=== PATIENT | male | born 1950 | race Caucasian/White ===

== ENCOUNTER → 2016-10-07 | Outpatient (CLI) | payer BC ==
--- NOTE | 2016-10-07 11:42 | PCVCIMAG ---
APPROVED REPORT Exam: Stress Echocardiogram Indication: CAD, CABG,HTN Parox A Flutter Stress Nurse: Puja Spivey RN Status: routine HR: 85 bpm Rhythm: NSR Procedure The patient underwent an Exercise Stress Test using the Abraham Protocol. Blood pressure, heart rate, and EKG were monitored. An Echocardiogram was performed by endoscope technician in four stages in quad fashion. At peak stress, four selected images were obtained and placed side by side with resting images for comparison. Stress Test Details Stress Test: Exercise stress testing was performed using a Abraham protocol. HR Resting HR: 85 bpmMax Heart Rate (APMHR): 156 bpm Max HR Achieved: 164 bpmTarget HR (85% APMHR): 132 bpm % of APMHR: 105 Recovery HR: 92 bpm HR response to stress: Normal HR response to stress BP Resting BP: 120/78 mmHg Max BP: 188/78 mmHg Recovery BP: 136/62 mmHg ECG Resting ECG: Sinus Rhythm Stress ECG: Sinus Rhythm ST Change: Normal, Non-ischemic Arrhythmia: Rare isolated PVC Recovery ECG: Sinus Rhythm Recovery Arrhythmia: None Clinical Reason for Termination: Maximal effort Stress Symptoms: None Exercise duration: 10 min sec Highest Stage Achieved: Stage 4: 4.2 mph at 16% grade. Exercise capacity: 13.4 METs Overall Exercise Capacity for Age: Good Pre-Stress Echo The resting Echocardiogram showed normal left ventricular contractility with an estimated Ejection Fraction of about 50-55%. Normal wall motion in all segments on baseline images. Post-Stress Echo The stress Echocardiogram showed normal left ventricular contractility with an estimated Ejection Fraction of about 60-65%. Normal augmentation of wall motion in all segments on post stress images. Clinical No clinical or ECG evidence for ischemia. Conclusion Clinical Response: Non-ischemic Exercise Capacity: above average Stress ECG Response: Non-ischemic Stress Echo Images: Non-ischemic Other Information Study Quality: Adequate
== END | disposition home or self-care (01) ==
LOC: PCVCIMAG 10:40
PROVIDERS: ATTEND Internal Medicine Cardiovascular Disease
DX: I25.10 Atherosclerotic heart disease of native coronary artery without angina pectoris (principal); I49.3 Ventricular premature depolarization; I10 Essential (primary) hypertension; I48.0 Paroxysmal atrial fibrillation; E78.5 Hyperlipidemia, unspecified; K50.90 Crohn's disease, unspecified, without complications; I25.2 Old myocardial infarction; Z88.0 Allergy status to penicillin; Z79.82 Long term (current) use of aspirin; Z79.899 Other long term (current) drug therapy; Z95.1 Presence of aortocoronary bypass graft
CPT/HCPCS: 36415; 93325; 93351; G0463

== ENCOUNTER → 2017-07-31 | Outpatient (CLI) | payer MEDICARE | END | disposition home or self-care (01) | LOC: PCVCCLINIC 11:32 | DX: I48.92 Unspecified atrial flutter (principal); I25.10 Atherosclerotic heart disease of native coronary artery without angina pectoris; I10 Essential (primary) hypertension; E78.5 Hyperlipidemia, unspecified; Z88.0 Allergy status to penicillin; Z79.82 Long term (current) use of aspirin; Z79.899 Other long term (current) drug therapy | CPT/HCPCS: 93005; G0463 ==

== ENCOUNTER → 2018-02-05 | Outpatient (CLI) | payer MEDICARE ==
--- NOTE | 2018-02-05 10:05 | PCVCIMAG ---
APPROVED REPORT Study performed: 02/05/2018 08:41:22 EXAM: Comprehensive 2D, Doppler, and color-flow Echocardiogram Patient Location: Echo lab Status: routine BSA: 1.96 HR: 51 bpmBP: 110/68 mmHg Rhythm: Bradycardia Other Information Study Quality: Adequate Risk Factors: Cardiac Risk Factors: HTN Indications Bradycardia CAD hx of atrial flutter, CABG 2D Dimensions IVSd: 11.26 (7-11mm) LVDd: 42.60 mm PWd: 10.20 (7-11mm)Ascending Ao: 33.07 (22-36mm) LVDs: 27.63 (25-40mm) Left Atrium: 40.68 (27-40mm) Aortic Root: 30.50 mm LV Single Plane 4CH: 63.89 % LV Single Plane 2CH: 59.28 % Biplane EF: 61.7 % Volumes Left Atrial Volume (Systole) Single Plane 4CH: 78.30 mLSingle Plane 2CH: 58.55 mL LA ESV Index: 36.00 mL/m2 Aortic Valve AoV Peak Abhilash.: 1.47 m/s AO Peak Gr.: 8.63 mmHgLVOT Max P.36 mmHg LVOT Max V: 1.04 m/s Mitral Valve E/A Ratio: 0.8 MV Decel. Time: 357.99 ms MV E Max Abhilash.: 0.59 m/s MV A Abhilash.: 0.74 m/s IVRT: 110.73 ms Pulmonary Valve PV Peak Abhilash.: 0.75 m/sPV Peak Gr.: 2.23 mmHg Pulmonary Vein P Vein S: 0.54 m/sP Vein A: 0.45 m/s P Vein D: 0.67 m/sP Vein A Dur.: 117.6 msec P Vein S/D Ratio: 0.81 Tricuspid Valve TR Peak Abhilash.: 2.20 m/s TR Peak Gr.: 19.42 mmHg TV Vmax: 0.45 m/s Left Ventricle The left ventricle is normal size. There is normal LV segmental wall motion. There is normal left ventricular wall thickness. Left ventricular systolic function is normal. The left ventricular ejection fraction is within the normal range. LVEF is 55-60%. Grade I - abnormal relaxation pattern. Right Ventricle The right ventricle is normal size. The right ventricular systolic function is normal. Atria Left atrium is mildly dilated. Right atrium is mildly dilated. Aortic Valve The Aortic valve is sclerotic. Trace aortic regurgitation. There is no aortic valvular stenosis. Mitral Valve The mitral valve is normal in structure. Mild mitral regurgitation. No evidence of mitral valve stenosis. Tricuspid Valve The tricuspid valve is normal in structure. Mild tricuspid regurgitation with PAP of 26 mmHg. Pulmonic Valve The pulmonary valve is normal in structure. There is no pulmonic valvular regurgitation. Great Vessels The aortic root is normal in size. IVC is normal in size and collapses >50% with inspiration. Pericardium There is no pericardial effusion. There is no pleural effusion. <Conclusion> The left ventricle is normal size. There is normal left ventricular wall thickness. Left ventricular systolic function is normal. Grade I - abnormal relaxation pattern. The right ventricle is normal size. Left atrium is mildly dilated. Right atrium is mildly dilated. The Aortic valve is sclerotic. Trace aortic regurgitation. Mild mitral regurgitation. Mild tricuspid regurgitation with PAP of 26 mmHg.
== END | disposition home or self-care (01) ==
LOC: PCVCIMAG 08:42
PROVIDERS: ATTEND Internal Medicine Cardiovascular Disease
DX: I48.92 Unspecified atrial flutter (principal); I25.10 Atherosclerotic heart disease of native coronary artery without angina pectoris; I10 Essential (primary) hypertension; E78.5 Hyperlipidemia, unspecified; E78.00 Pure hypercholesterolemia, unspecified; Z79.82 Long term (current) use of aspirin
CPT/HCPCS: 93005; 93306; G0463

== ENCOUNTER → 2018-08-10 | Outpatient (CLI) | payer MEDICARE ==
--- NOTE | 2018-08-10 10:43 | PCVCIMAG ---
APPROVED REPORT Study performed: 08/10/2018 09:48:21 Exam: Stress Echocardiogram Indication: CABG, HTN, CAD, a flutter, hx of NV Patient Location: Echo lab Stress Nurse: Puja Spivey RN Status: routine Ht: 6 ft 0 in HR: 62 bpm BP: 124/78 mmHg Rhythm: NSR Procedure The patient underwent an Exercise Stress Test using the Abraham Protocol. Blood pressure, heart rate, and EKG were monitored. An Echocardiogram was performed by water quality technician in four stages in quad fashion. At peak stress, four selected images were obtained and placed side by side with resting images for comparison. Stress Test Details Stress Test: Exercise stress testing was performed using a Abraham protocol. HR Resting HR: 62 bpmMax Heart Rate (APMHR): 155 bpm Max HR Achieved: 144 bpmTarget HR (85% APMHR): 131 bpm % of APMHR: 92 Recovery HR: 80 bpm HR response to stress: Normal HR response to stress BP Resting BP: 124/78 mmHg Max BP: 186/78 mmHg Recovery BP: 136/76 mmHg BP response to stress: Normal blood pressure response to stress. ECG Resting ECG: Sinus Rhythm Stress ECG: Sinus Rhythm ST Change: Non-ischemic Arrhythmia: rare PVCs Recovery ECG: Sinus Rhythm Recovery ST Change: Normal Recovery Arrhythmia: None Clinical Reason for Termination: Maximal effort Stress Symptoms: Dyspnea Exercise duration: 12 min 15 sec Highest Stage Achieved: Stage 5: 5.0 mph at 18% grade. Exercise capacity: 14 METs Overall Exercise Capacity for Age: Good Scale: Active Angina Score: None Pre-Stress Echo The resting Echocardiogram showed normal left ventricular contractility with an estimated Ejection Fraction of about >55%. Normal wall motion in all segments on baseline images. Post-Stress Echo The stress Echocardiogram showed normal left ventricular contractility with an estimated Ejection Fraction of about 65%. Normal augmentation of wall motion in all segments on post stress images. Clinical No clinical or ECG evidence for ischemia. Conclusion Clinical Response: Non-ischemic Exercise Capacity: Superior Stress ECG Response: Non-ischemic Stress Echo Images: Non-ischemic The left ventricle is normal in size and wall thickness in both the rest and stress images. Other Information Study Quality: Adequate <Conclusion> The left ventricle is normal in size and wall thickness in both the rest and stress images.
== END | disposition home or self-care (01) ==
LOC: PCVCIMAG 09:30
PROVIDERS: ATTEND Internal Medicine Cardiovascular Disease
DX: I25.10 Atherosclerotic heart disease of native coronary artery without angina pectoris (principal); I10 Essential (primary) hypertension; E78.5 Hyperlipidemia, unspecified; I48.91 Unspecified atrial fibrillation; I25.2 Old myocardial infarction; E78.00 Pure hypercholesterolemia, unspecified
CPT/HCPCS: 93325; 93351; G0463